=== PATIENT | male | born 1995 | race American Indian/Alaskan Native ===

== ENCOUNTER 2019-02-22 21:03 | Emergency (ER) | payer SELFPAY ==
--- NOTE | 2019-02-22 21:42 | Event Note ---
ED Screening Note Date of service: 02/22/19 Time: 21:42 ED Screening Note: 23 y o male presents to ED cc of lip lesion x 1 year pt thinks he has cancer and wants to be tested pt denies any f/c/n/v This initial assessment/diagnostic orders/clinical plan/treatment(s) is/are subject to change based on patients health status, clinical progression and re- assessment by fellow clinical providers in the ED. Further treatment and workup at subsequent clinical providers discretion. Patient/guardian urged not to elope from the ED as their condition may be serious if not clinically assessed and managed. Initial orders include: Made pt aware that the ER does not screen for cancer Discussed follow up with the right resources at [facility] ; refferrals given Vital signs are normal no acute distress
[2019-02-22 21:46] VITALS: BP 77/56
== END 2019-02-22 22:00 | disposition left against medical advice (07) ==
LOC: ED 21:03
DX: S09.90XA Unspecified injury of head, initial encounter (principal); Z53.21 Procedure and treatment not carried out due to patient leaving prior to being seen by health care provider